=== PATIENT | male | born 1950 | race Caucasian/White ===

== ENCOUNTER 2017-12-09 11:40 | Emergency (ER) | payer OTHER ==
--- NOTE | 2017-12-09 14:02 | ED Physician Documentation ---
PD HPI LOWER EXT INJURY - Stated complaint Stated Complaint: WOUND BLEEDING - Chief complaint Chief Complaint: Laceration - History obtained from History obtained from: Patient - History of Present Illness PD HPI LOW EXT INJURY LOCATION: Right, Lower leg Type of injury: Laceration (he struck back of lower leg with weedeater and caused small laceration that will not stop bleeding despite bandage and bandaids to it.) Where injury occurred: Home Timing - onset: Today Timing - duration: Hours Timing - details: Abrupt onset, Still present Worsened by: Moving, Palpating Associated symptoms: No: Weakness, Numbness Contributing factors: Anticoagulated Similar symptoms before: Has not had sx before Recently seen: Not recently seen Review of Systems Skin: reports: Laceration (s) Neurologic: denies: Focal weakness, Numbness, Near syncope PD PAST MEDICAL HISTORY - Past Medical History Past Medical History: Yes Cardiovascular: Congestive heart failure, Atrial fibrillation - Past Surgical History Past Surgical History: Yes Cardiovascular: AICD, Other - Allergies Allergies/Adverse Reactions: Allergies Allergy/AdvReac Type Severity Reaction Status Date / Time No Known Drug Allergies Allergy Verified 12/09/17 11:44 - Social History Does the pt smoke?: No Smoking Status: Never smoker Does the pt drink ETOH?: Yes Does the pt have substance abuse?: No - Immunizations Immunizations are current?: Yes PD ED PE NORMAL - Vitals Vital signs reviewed: Yes - General General: Alert and oriented X 3, No acute distress, Well developed/nourished - Derm Derm: Normal color, Warm and dry, No rash - Extremities Extremities: No deformity (there is small 1 cm avulsion laceration that is only partial thickness but has capillary oozing of blood when dressing removed. No FB. No deeper structures involved. Locally tender. Normal distall sensataion), Normal ROM s pain, No edema - Neuro Neuro: Alert and oriented X 3, No motor deficit, No sensory deficit, Normal speech Results - Vitals Vitals: Oxygen O2 Source Room air - Labs Labs: Laboratory Tests 12/09/17 15:09 Whole Blood INR 5.0 H* Procedures - Laceration (location) right posterior lower leg Length in cm: 1 Wound type: Superficial, Clean, Other (small avulsion). No: Into subcut fat Neurovascular status: Sensory intact, Motor intact Anesthesia: Marcaine 0.5% with epi Wound Preparation: Irrigated copiously NS, Wound explored, To the base. No: FB identified Skin layer closure: Dermabond Other: Patient tolerated well, No complications, Tetanus UTD PD MEDICAL DECISION MAKING - ED course Complexity details: considered differential (superficial wound with skin avulsion and steady capillary oozing. Bleeding decreased with local injection, then stopped with battery cautery. Monsels solution then applied and Dermabond over it. ), d/w patient - Sepsis Event Vital Signs: Oxygen O2 Source Room air Departure - Departure Disposition: 01 Home, Self Care Clinical Impression: Anticoagulant long-term use, Supratherapeutic INR Laceration of lower leg Qualifiers: Encounter type: initial encounter Laterality: right Qualified Code(s): S81.811A - Laceration without foreign body, right lower leg, initial encounter Condition: Stable Record reviewed to determine appropriate education?: Yes Instructions: ED Laceration Small Superf No Sutr Follow-Up: JUSTIN HOLLIDAY,MAYUR Jenkins PA-C [Primary Care Provider] - Comments: Leave the initial dressing on this afternoon. It is okay to wash and shower later or tomorrow. This should not bleed any further. Your Coumadin level is elevated at 5.0. Hold your Coumadin for 2 days and then resume as usual. Have your INR checked again next week. Discharge Date/Time: 12/09/17 15:16
[2017-12-09] MEDS ORDERED: LIDOCAINE MPF 1%-EPI 1:200000 30 ML VIAL SUBQ STA (14:11)
[2017-12-09 15:17] VITALS: BP 127/90
== END 2017-12-09 15:16 | disposition home or self-care (01) ==
LOC: ED 11:40
DX: S81.811A Laceration without foreign body, right lower leg, initial encounter (principal); W29.3XXA Contact with powered garden and outdoor hand tools and machinery, initial encounter; Y92.009 Unspecified place in unspecified non-institutional (private) residence as the place of occurrence of the external cause; I48.91 Unspecified atrial fibrillation; Z95.810 Presence of automatic (implantable) cardiac defibrillator; Z79.01 Long term (current) use of anticoagulants
CPT/HCPCS: 12001; 85610; 99282; 99283